=== PATIENT | male | born 1970 | race Caucasian/White ===

== ENCOUNTER → 2017-05-04 | Outpatient (CLI) | payer BC ==
[~2017-05-04] MED LIST: CLR10 PO
[2017-05-04 09:33] LABS: BASO % 0.3 %; BASO ABS # 0.02 K/uL (0-0.2); EOS % 1.9 %; EOS ABS # 0.13 K/uL (0-0.5); HEMATOCRIT 40.6 % (42-52); HEMOGLOBIN 14.5 g/dL (14.0-18.0); IG# 0.03 K/uL (0.00-0.02); LYMPH % 32.6 %; LYMPH ABS # 2.23 K/uL (1.2-3.4); MEAN CELL VOLUME 88.1 fL (80-100); MEAN CORPUSCULAR HEMOGLOBIN 31.5 pg (25-34); MEAN CORPUSCULAR HGB CONC 35.7 g/dl (32-36); MEAN PLATELET VOLUME 10.1 fL (7.4-10.4); MONO % 7.6 %; MONO ABS # 0.52 K/uL (0.11-0.59); NEUT % 57.2 %; NEUT ABS # 3.92 K/uL (1.4-6.5); PLATELET COUNT 226 K/uL (130-400); RED CELL DISTRIBUTION WIDTH CV 12.8 % (11.5-14.5); WHITE BLOOD COUNT 6.85 K/uL (4.8-10.8)
[2017-05-04 09:54] LABS: BLOOD UREA NITROGEN 20 mg/dl (7-18); CALCIUM 9.1 mg/dl (8.5-10.1); CARBON DIOXIDE 27 mmol/L (21-32); CREATININE 1.21 mg/dl (0.60-1.40); GLUCOSE 95 mg/dl (70-99); POTASSIUM 3.9 mmol/L (3.5-5.1); SODIUM 140 mmol/L (136-145)
[2017-05-04 10:04] LABS: CHOLESTEROL 139 mg/dl (0-200); LDL CHOLESTEROL CALCULATED 80 mg/dl
== END | disposition home or self-care (01) ==
LOC: C.LAB1850 08:11
PROVIDERS: ATTEND Internal Medicine
DX: N52.9 Male erectile dysfunction, unspecified (principal); E78.5 Hyperlipidemia, unspecified; R31.9 Hematuria, unspecified